=== PATIENT | female | born 1950 | race Caucasian/White ===

== ENCOUNTER 2018-09-06 14:04 | Inpatient (IN) | payer MEDICARE ==
[~2018-09-06] VITALS: Ht 162.6 cm; Wt 89.8 kg
[2018-09-06] MEDS ORDERED: IPRATRPIUM/ALBUTEROL 0.5/2.5MG 3 ML NEBU. NEB ONE (14:15)
--- NOTE | 2018-09-06 14:20 | PHYS DOC ---
Past History Past Medical History: CHF, COPD, Diabetes, High Cholesterol, Heart Disease, Hypertension Past Surgical History: Cholecystectomy, Coronary Bypass Surgery Alcohol Use: None Drug Use: None Adult General Chief Complaint Chief Complaint: SHORTNESS OF BREATH HPI HPI 68-year-old female presents with severe shortness of breath. The patient tells me that she has had increasing shortness of breath for the last 3 days. She has a history of CHF, COPD, [place], cardiac bypass. She is visiting from [place]. She has not noticed any increased swelling, just shortness of breath. She has not had fever or chills. She denies chest pain or diaphoresis. On arrival her oxygen was in the 70s on room air. She is on COPD medications and has been taking them as prescribed. Review of Systems Review of Systems Constitutional: Denies fever or chills [] Eyes: Denies change in visual acuity, redness, or eye pain [] HENT: Denies nasal congestion or sore throat [] Respiratory: Shortness of breath [] Cardiovascular: No additional information not addressed in HPI [] GI: Denies abdominal pain, nausea, vomiting, bloody stools or diarrhea [] : Denies dysuria or hematuria [] Musculoskeletal: Denies back pain or joint pain [] Integument: Denies rash or skin lesions [] Neurologic: Denies headache, focal weakness or sensory changes [] Endocrine: Denies polyuria or polydipsia [] All other systems were reviewed and found to be within normal limits, except as documented in this note. Current Medications Current Medications Current Medications Medications (Trade) Dose Ordered Sig/Smitha Start Time Stop Time Status Last Admin Dose Admin Albuterol/ Ipratropium (Duoneb) 3 ml 1X ONCE 09/06/18 14:15 09/06/18 14:16 UNV Allergies Allergies Allergies Coded Allergies Type Severity Reaction Last Updated Verified No Known Drug Allergies 09/06/18 No Physical Exam Physical Exam Constitutional: Well developed, well nourished, mild acute distress, non-toxic appearance. [] HENT: Normocephalic, atraumatic, bilateral external ears normal, oropharynx moist, no oral exudates, nose normal. [] Eyes: PERRLA, EOMI, conjunctiva normal, no discharge. [] Neck: Normal range of motion, no tenderness, supple, no stridor. [] Cardiovascular:Heart rate regular rhythm, no murmur [] Lungs & Thorax: Bilateral breath sounds markedly diminished throughout.[] Abdomen: Bowel sounds normal, soft, no tenderness, no masses, no pulsatile masses. [] Skin: Warm, dry, no erythema, no rash. [] Back: No tenderness, no CVA tenderness. [] Extremities: No tenderness, no cyanosis, no clubbing, ROM intact, 2+ edema bilateral lower extremities. [] Neurologic: Alert and oriented X 3, normal motor function, normal sensory function, no focal deficits noted. [] Psychologic: Affect normal, judgement normal, mood concerned. [] Current Patient Data Vital Signs Vital Signs Date Time Temp Pulse Resp B/P (MAP) Pulse Ox O2 Delivery O2 Flow Rate FiO2 09/06/18 14:08 98.6 88 24 77 Room Air EKG EKG Sinus rhythm, rate 90, normal axis, no ST elevations or depressions.[] Radiology/Procedures Radiology/Procedures [] Impressions: CHEST AP ONLY Clinical Indication: SHORT OF BREATH Comparison: 01/04/2013 two-view chest x-ray exam Findings: Sternal wires and mediastinal clips are present. The cardiomediastinal silhouette is normal. Lungs are clear. There is no pneumothorax. No pleural effusion is appreciated. No acute bone abnormality. IMPRESSION: No acute cardiopulmonary process. Electronically signed by: Maida Mccurdy MD (09/06/2018 2:42 PM) [id number] DICTATED AND SIGNED BY: MAIDA MCCURDY MD DATE: 09/06/18 1442 CC: TOMMY VILLA DO Course & Med Decision Making Course & Med Decision Making Pertinent Labs and Imaging studies reviewed. (See chart for details) The patient's chest x-ray is negative for acute findings. Her labs are remarkable for a pro BNP of over 700 and a slightly elevated creatinine 1.3. These are likely near her baseline. She was given a one hour albuterol treatment and now she has diffuse bilateral wheezing in her lungs. She has not previously been on oxygen and now is taking over 6 L to maintain oxygen saturation greater than 90. It has improved from 10 L at arrival. Patient was given 125 of Solu-Medrol. I discussed the patient with Dr. Esparza and he has accepted the patient for admission. Patient is in agreement with this plan. [] Dragon Disclaimer Dragon Disclaimer This electronic medical record was generated, in whole or in part, using a voice recognition dictation system. Departure Departure: Impression: Primary Impression: COPD exacerbation Disposition: ADMITTED INPATIENT Condition: GUARDED TOMMY VILLA DO Sep 06, 2018 14:20
[2018-09-06] MEDS ORDERED: ALBUTEROL SULFATE 2.5 MG/3 ML NEBU. ONE (14:34)
[2018-09-06 14:45] LABS: BASO % 0 % (0-3); EOS % 1 % (0-3); HEMATOCRIT 37.7 % (36.0-47.0); HEMOGLOBIN 12.3 g/dL (12.0-15.5); LYMPH # 1.3 x10^3/uL (1.0-4.8); LYMPH % 16 % (24-48); MEAN CORPUSCULAR HEMOGLOBIN 26 pg (25-35); MEAN CORPUSCULAR HGB CONC 33 g/dL (31-37); MEAN CORPUSCULAR VOLUME 80 fL (79-100); MONO # 0.8 x10^3/uL (0.0-1.1); MONO % 10 % (0-9); NEUT # 5.9 x10^3uL (1.8-7.7); NEUT % 74 % (31-73); PLATELET COUNT 273 x10^3/uL (140-400); RED BLOOD COUNT 4.74 x10^6/uL (3.50-5.40); RED CELL DISTRIBUTION WIDTH 16.3 % (11.5-14.5); WHITE BLOOD COUNT 7.9 x10^3/uL (4.0-11.0)
[2018-09-06] MEDS ORDERED: ALBUTEROL SULFATE 2.5 MG/3 ML NEBU. CONT NEB ONE (14:45)
--- NOTE | 2018-09-06 14:45 | RAD ---
CHEST AP ONLY Clinical Indication: SHORT OF BREATH Comparison: 01/04/2013 two-view chest x-ray exam Findings: Sternal wires and mediastinal clips are present. The cardiomediastinal silhouette is normal. Lungs are clear. There is no pneumothorax. No pleural effusion is appreciated. No acute bone abnormality. IMPRESSION: No acute cardiopulmonary process. Electronically signed by: Joshua Delgado MD (09/06/2018 2:42 PM) [id number]
[2018-09-06] MEDS ORDERED: methylPREDNISolone SOD SUCC PF 125 MG/2 ML VIAL. ONE (14:51)
[2018-09-06] MEDS ORDERED: methylPREDNISolone SOD SUCC PF 125 MG/2 ML VIAL. IV ONE (15:00)
[2018-09-06 15:06] LABS: ALBUMIN/GLOBULIN RATIO 0.7 (1.0-1.7); CALCIUM 8.1 mg/dL (8.5-10.1); CREATININE 1.3 mg/dL (0.6-1.0); POTASSIUM 4.3 mmol/L (3.5-5.1); TOTAL BILIRUBIN 0.5 mg/dL (0.2-1.0); TOTAL PROTEIN 7.6 g/dL (6.4-8.2)
[2018-09-06] MEDS ORDERED: IPRATRPIUM/ALBUTEROL 0.5/2.5MG 3 ML NEBU. NEB SCH (16:00)
[2018-09-06 16:30] VITALS: BP 123/86
[2018-09-06 17:07] LABS: BGAS PH 7.38 (7.35-7.45)
[2018-09-06] MEDS ORDERED: ALBUTEROL SULFATE 2.5 MG/3 ML NEBU. NEB PRN (17:30)
--- NOTE | 2018-09-06 17:30 | EKG ---
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
[2018-09-06] MEDS ORDERED: PRAV40TA2 PO (17:39)
[2018-09-06] MEDS ORDERED: INSU100I17 SQ (17:39)
[2018-09-06] MEDS ORDERED: FURO-69 PO (17:39)
[2018-09-06] MEDS ORDERED: FENO145T30 PO (17:39)
[2018-09-06] MEDS ORDERED: BUSP10TA PO (17:39)
[2018-09-06] MEDS ORDERED: METO25TA4 PO (17:39)
[2018-09-06] MEDS ORDERED: GABA-586 PO (17:39)
[2018-09-06] MEDS ORDERED: ASPI325T8 PO (17:39)
[2018-09-06] MEDS ORDERED: LOSA50TA86 PO (17:39)
--- NOTE | 2018-09-06 18:08 | HP ---
ADMIT DATE: 09/06/2018 HISTORY OF PRESENT ILLNESS: The patient is a 68-year-old female patient, visiting from [place], who came to the Emergency Room complaining of severe shortness of breath that has been worsening over the last 3 days. She complained of cough with yellow sputum; however, she also complained of orthopnea and paroxysmal nocturnal dyspnea, but denied any fever or chills, denied any chest pain or diaphoresis. However, when she arrived to the Emergency Room, her oxygen saturation was only 70% on room air. She is on bronchodilators and she has been taking her medication regularly. She was extensively evaluated in the Emergency Room and was given back to back treatment. Her lab work showed her white cell count was normal and her chest x-ray showed that there sternal wires and mediastinal clips are present. The cardiomediastinal silhouette is normal. Lungs are clear. There is no pneumothorax, no pleural effusion is appreciated. No acute bone abnormality. The patient was admitted with diagnoses of chronic obstructive pulmonary disease exacerbation, acute bronchitis and acute hypoxic respiratory failure. PAST MEDICAL HISTORY: Her past medical history is significant for chronic obstructive pulmonary disease, hypertension, hyperlipidemia, type 2 diabetes, coronary artery disease, status post CABG in 1997. She is also complaining of dysphagia, has congestive heart failure and aortic regurgitation. PAST SURGICAL HISTORY: Past surgical history is significant for right eye cataract extraction, coronary artery bypass graft surgery, right carotid endarterectomy, cholecystectomy. ALLERGIES: She has no known drug allergies. MEDICATIONS: She is currently on following medications: She is on albuterol sulfate/ipratropium bromide 0.5/3 mg in 3 mL by nebulizer 4 times a day, aspirin 325 mg once a day, buspirone 10 mg 3 times a day, fenofibrate 140 mg once a day, Advair Diskus 500/50 ____ times a day, furosemide 20 mg twice a day, gabapentin 300 mg at bedtime. She is on losartan 50 mg twice a day, metoprolol tartrate 25 mg, she takes half a tablet twice a day, pravastatin 40 mg at bedtime, Symbicort 2 times a day. She is on insulin 10 units before meals. She is on Lantus insulin 50 units twice a day. FAMILY HISTORY: She has one brother and 5 sisters, all older and all of them have diabetes and coronary artery disease and her father at the age of 52 because of myocardial infarction. Mother at the age of 61 because of myocardial infarction. SOCIAL HISTORY: She is , lives alone. She has 3 daughters and 1 son. She is an ex-smoker, quit 20 years ago. She used to smoke a pack a day for 30-40 years. She does not drink alcohol or recreational drugs. 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 REVIEW OF SYSTEMS: The patient denied any blurring of vision. She does have cataract extraction in her right eye, but denied any glaucoma or macular degeneration. Denied any earache, tinnitus or sensorineural deafness. Denied any nosebleeds, stuffy nose or postnasal drip. Denied any sore throat, sore tongue, toothache, hoarseness of voice. She did complain of difficulty swallowing. Denied any nausea, vomiting, diarrhea or constipation. Denied any hematemesis, melena or hematochezia. Denied any dysuria, frequency or hematuria. Denied any chest pain, but did complain of shortness of breath, orthopnea and paroxysmal nocturnal dyspnea. Did complain of cough with scanty yellowish sputum. Denied any dizziness, lightheadedness or vertigo. Denied any chills, rigors, or fever. She did have history of obstructive sleep apnea and she was actually started on BiPAP, but she could not tolerate it. PHYSICAL EXAMINATION: GENERAL: On arrival to the Emergency Room, the patient was clearly tachypneic, hypoxic. Her oxygen saturation was only 77% on room air. Pale, no jaundice, cyanosis, or thyromegaly. No jugular venous distension. Mild bilateral lower limb edema. VITAL SIGNS: Her heart rate was 88, blood pressure was 123/47, temperature was 98.6, respiratory rate was 24, and oxygen saturation was 77% on room air that increased to 93% on 9 liters of oxygen. HEENT: Examination of the head, eyes, ears, nose and throat showed normocephalic, atraumatic. NECK: Supple. HEART: Showed normal first and second heart sounds with no gallop, rub or murmur. CHEST: Showed central trachea, equally reduced expansion, reduced air entry, vesicular sounds with bilateral scattered rhonchi. I could not appreciate any crepitation. NEUROLOGIC: She is awake, alert, responding appropriately. All her cranial nerves are intact. EXTREMITIES: She moves extremities without difficulty. She does ambulate without assistance or assistive devices and she is not normally on oxygen at home. LABORATORY DATA AND IMAGING STUDIES: Her lab work on arrival showed a white cell count of 7900, hemoglobin 12.3, hematocrit 37.7, MCV 80 and platelet count 273,000. Her chemistry showed a serum sodium 137, potassium 4.3, chloride 102, bicarbonate 29, anion gap of 6, BUN 32, creatinine 1.3, estimated GFR was 41 mL per minute. Her glucose was 209, calcium was 8.1. Total bilirubin, AST, ALT, alkaline phosphatase were normal. Her first set of cardiac enzymes showed troponin to be less than 0.017 and beta-natriuretic peptide was 754. Total protein was 7.6, albumin 3. Her chest x-ray showed sternal wires and mediastinal clips are present. The cardiomediastinal silhouette is normal. Lungs are clear. There is no pneumothorax, no pleural effusion is appreciated. No acute bony abnormalities. IMPRESSION: So, in summary, this is a 68-year-old female patient, who was admitted with acute hypoxic respiratory failure, chronic obstructive pulmonary disease exacerbation, acute bronchitis. She has multiple other medical problems including obviously chronic obstructive pulmonary disease exacerbation, hypertension, type 2 diabetes, hyperlipidemia and she is known to have chronic, probably diastolic congestive heart failure due to aortic regurgitation. PLAN: My plan is to continue with IV antibiotic, IV steroids and inhalers. We will obviously consult the cardiology to assist with her management and will do 2 more sets of cardiac enzyme. CONSUELO ACEVEDO MD DR: TONG/charles JOB#: [id number] / [id number]
[2018-09-06 19:12] VITALS: BP_SYST 117; BP_DIAS 45; BP_DIAS 48
[2018-09-06] MEDS: INSULIN LISPRO 300 UNITS/3 ML INSULN.PEN. SQ SCH (19:12)
[2018-09-06] MEDS: FUROSEMIDE 20 MG TABLET PO SCH (19:13)
[2018-09-06] MEDS: IPRATRPIUM/ALBUTEROL 0.5/2.5MG 3 ML NEBU. NEB SCH (20:33)
[2018-09-06 21:16] VITALS: BP 121/45
[2018-09-06] MEDS: GABAPENTIN 300 MG CAPSULE. PO SCH (21:17)
[2018-09-06] MEDS: methylPREDNISolone SOD SUCC PF 40 MG/ML VIAL. IV SCH (21:17)
[2018-09-06] MEDS: PRAVASTATIN 20 MG TABLET. PO SCH (21:18)
[2018-09-06] MEDS: LOSARTAN 50 MG TABLET. PO SCH (21:18)
[2018-09-06] MEDS: METOPROLOL TART IMMED RELEASE 25 MG TABLET PO SCH (21:18)
[2018-09-06] MEDS: busPIRone 5 MG TABLET. PO SCH (21:19)
[2018-09-06] MEDS: ASPIRIN 325 MG TABLET PO SCH (21:19)
[2018-09-06] MEDS: MONTELUKAST 10 MG TABLET. PO SCH (21:19)
[2018-09-06] MEDS: INSULIN GLARGINE 300 UNITS/3 ML INSULN.PEN. SQ SCH (21:32)
[2018-09-06 23:02] VITALS: BP 106/49
[2018-09-07 04:22] VITALS: BP 135/56
[2018-09-07] MEDS: IPRATRPIUM/ALBUTEROL 0.5/2.5MG 3 ML NEBU. NEB SCH ×4 (05:01→20:06)
[2018-09-07] MEDS: methylPREDNISolone SOD SUCC PF 40 MG/ML VIAL. IV SCH ×3 (05:23→21:06)
[2018-09-07 06:15] LABS: BASO % 0 % (0-3); EOS % 0 % (0-3); HEMATOCRIT 37.1 % (36.0-47.0); HEMOGLOBIN 11.8 g/dL (12.0-15.5); LYMPH # 0.7 x10^3/uL (1.0-4.8); LYMPH % 10 % (24-48); MEAN CORPUSCULAR HEMOGLOBIN 26 pg (25-35); MEAN CORPUSCULAR HGB CONC 32 g/dL (31-37); MEAN CORPUSCULAR VOLUME 81 fL (79-100); MONO # 0.3 x10^3/uL (0.0-1.1); MONO % 3 % (0-9); NEUT # 6.6 x10^3uL (1.8-7.7); NEUT % 87 % (31-73); PLATELET COUNT 275 x10^3/uL (140-400); RED BLOOD COUNT 4.57 x10^6/uL (3.50-5.40); RED CELL DISTRIBUTION WIDTH 16.2 % (11.5-14.5); WHITE BLOOD COUNT 7.5 x10^3/uL (4.0-11.0)
[2018-09-07 06:29] LABS: ALBUMIN 2.8 g/dL (3.4-5.0); ALBUMIN/GLOBULIN RATIO 0.6 (1.0-1.7); CALCIUM 7.9 mg/dL (8.5-10.1); CREATININE 1.4 mg/dL (0.6-1.0); GFR 37.6; POTASSIUM 4.9 mmol/L (3.5-5.1); TOTAL BILIRUBIN 0.5 mg/dL (0.2-1.0); TOTAL PROTEIN 7.3 g/dL (6.4-8.2)
[2018-09-07] MEDS: INSULIN LISPRO 300 UNITS/3 ML INSULN.PEN. SQ SCH ×3 (07:56→16:51)
[2018-09-07] MEDS: INSULIN GLARGINE 300 UNITS/3 ML INSULN.PEN. SQ SCH ×2 (07:57→21:06)
[2018-09-07] MEDS: FUROSEMIDE 20 MG TABLET PO SCH ×3 (08:20→16:47)
[2018-09-07] MEDS: busPIRone 5 MG TABLET. PO SCH ×3 (08:20→21:05)
[2018-09-07] MEDS: FENOFIBRATE NANOCRYSTALLIZED 145 MG TABLET PO SCH (08:20)
[2018-09-07] MEDS: METOPROLOL TART IMMED RELEASE 25 MG TABLET PO SCH ×2 (08:20→21:05)
[2018-09-07] MEDS: LOSARTAN 50 MG TABLET. PO SCH ×2 (08:20→21:05)
[2018-09-07 10:52] VITALS: BP 117/52
[2018-09-07 14:33] VITALS: BP 103/61
--- NOTE | 2018-09-07 19:30 | PDOC2 ---
CONSULT Date of Admission DATE: 09/07/18 TIME: 19:06 Reason for Consult: CHF, aortic regurgitation Problem List Problems Medical Problems: (1) COPD exacerbation Status: Acute History of Present Illness Ms oGdwin is a 68 year old female from [place] here visiting children. She has a history of coronary artery disease s/p bypass surgery in the late 90s. She has additional history of hypertension, hyperlipidemia, diabetes mellitus and COPD. She reports that over the last couple weeks she has become progressively short of breath, she reports symptoms started with a productive cough and runny nose. She reports multiple exposures to respiratory illness. She says over the last couple days the dyspnea increased to the point she sought emergency care. She says she received a couple b ack to back breathing treatments and began to feel better. She denies chest pain. She does report that her only anginal symptom prior to bypass was progressive fatigue. She denies any recent similar symptoms. SHe denies congestive symptoms. She does report edema which is worse when she is on her feel alot, in the evenings and better in the mornings. She denies any palpitations, lightheadedness or syncope. Cardiovascular: CAD, HTN, hyperipidemia, valve insufficiency, Other (aortic dilitation, she reports 3cm. She reports last cardiac cath a couple years ago and no interventions needed. She reports long standing aortic regurgitation, ) Pulmonary: COPD, Pneumonia, Other ([place]) GI: Other (dysphagia) Endocrine: Diabetes Past Surgical History: Cholecystectomy, CABG, Cataract Removal, Other (carotid endarterectomy) Family History multiple family members with coronary artery disease Social History occasional smoker, no ETOH, no illicit drugs Current Medications Current Medications Albuterol/ Ipratropium (Duoneb) 3 ml 1X ONCE NEB Last administered on at 14:17; Start 09/06/18 at 14:15; Stop 09/06/18 at 14:18; Status DC Albuterol Sulfate (Ventolin) 2.5 mg STK-MED ONCE .ROUTE ; Start 09/06/18 at 14: 34; Stop 09/06/18 at 14:42; Status DC Albuterol Sulfate (Ventolin) 10 mg 1X ONCE CONT NEB Last administered on at 14:46; Start 09/06/18 at 14:45; Stop 09/06/18 at 14:46; Status DC Methylprednisolone Sodium Succinate (SOLU-Medrol 125MG VIAL) 125 mg 1X ONCE IV Last administered on 09/06/18 14:52; Start 09/06/18 at 15:00; Stop 09/06/18 at 15:01; Status DC Methylprednisolone Sodium Succinate (SOLU-Medrol 125MG VIAL) 125 mg STK-MED ONCE .ROUTE ; Start 09/06/18 at 14:51; Stop 09/06/18 at 14:52; Status DC Albuterol/ Ipratropium (Duoneb) 3 ml RTQID NEB ; Start 09/06/18 at 16:00; Stop 09/06/18 at 17:31; Status DC Methylprednisolone Sodium Succinate (SOLU-Medrol 40MG VIAL) 40 mg Q8HRS IV Last administered on 09/07/18at 13:47; Start 09/06/18 at 22:00 Albuterol/ Ipratropium (Duoneb) 3 ml RTQID NEB Last administered on 09/07/18at 15:36; Start 09/06/18 at 20:00 Albuterol Sulfate (Ventolin) 2.5 mg PRN Q2HR PRN NEB SHORTNESS OF BREATH Last administered on 09/07/18at 14:35; Start 09/06/18 at 17:30 Guaifenesin (Mucinex Er) 600 mg BID PO Last administered on 09/07/18 08:20; Start 09/06/18 at 21:00 Montelukast Sodium (Singulair) 10 mg QHS PO Last administered on 09/06/18at 21: 19; Start 09/06/18 at 21:00 Aspirin (Mohinder Aspirin) 325 mg QHS PO Last administered on 09/06/18 21:19; Start 09/06/18 at 21:00 Furosemide (Lasix) 20 mg BID94 PO Last administered on 09/07/18 08:20; Start 09/06/18 at 18:00; Stop 09/07/18 at 16:55; Status DC Gabapentin (Neurontin) 300 mg QHS PO Last administered on 09/06/18 21:17; Start 09/06/18 at 21:00 Losartan Potassium (Cozaar) 50 mg BID PO Last administered on 09/07/18 08:20; Start 09/06/18 at 21:00 Metoprolol Tartrate (Lopressor) 25 mg BID PO Last administered on 09/07/18 08: 20; Start 09/06/18 at 21:00 Buspirone HCl (Buspar) 10 mg TID PO Last administered on 09/07/18at 13:47; Start 09/06/18 at 21:00 Fenofibrate (Tricor) 145 mg DAILY PO Last administered on 09/07/18at 08:20; Start 09/07/18 at 09:00 Insulin Human Lispro (HumaLOG) 10 units TIDAC SQ Last administered on at 16:51; Start 09/06/18 at 19:30 Pravastatin Sodium (Pravachol) 40 mg QHS PO Last administered on 09/06/18at 21: 18; Start 09/06/18 at 21:00 Insulin Glargine (Lantus) 50 units BID SQ Last administered on 09/07/18at 07:57 ; Start 09/06/18 at 19:30 Furosemide (Lasix) 20 mg DAILY PO ; Start 09/08/18 at 09:00 Active Scripts Active Reported Gabapentin (Gabapentin) 300 Mg Capsule 300 Mg PO QHS Lasix (Furosemide) 20 Mg Tablet 20 Mg PO BID Fenofibrate (Fenofibrate Nanocrystallized) 145 Mg Tablet 145 Mg PO DAILY Buspirone Hcl 10 Mg Tablet 10 Mg PO TID Aspirin 325 Mg Tablet 325 Mg PO QHS Novolog Flexpen (Insulin Aspart) 100 Unit/1 Ml Insuln.pen 10 Unit SQ TIDAC Pravastatin Sodium 40 Mg Tablet 40 Mg PO QHS Metoprolol Tartrate 25 Mg Tablet 25 Mg PO BID Cozaar (Losartan Potassium) 50 Mg Tablet 50 Mg PO BID Allergies: Coded Allergies: No Known Drug Allergies (Unverified , 09/06/18) Review of System as per HPI General: Alert, Oriented X3, Cooperative, No acute distress HEENT: Atraumatic, EOMI, Mucous membr. moist/pink Lungs: Other (expiratory wheezing and rhonchi, clears with cough) Heart: Normal S1, Normal S2, Other (no obvious murmurs, no gallops, clicks or rubs) Abdomen: Normal bowel sounds, Soft, No tenderness Extremities: No cyanosis, Other (1+ edema) Neuro: Normal speech, Strength at 5/5 X4 ext Psych/Mental Status: Mental status NL, Mood NL VITALS Vital Signs Date Time Temp Pulse Resp B/P (MAP) Pulse Ox O2 Delivery O2 Flow Rate FiO2 09/07/18 15:36 91 Nasal Cannula 4.0 09/07/18 14:33 97.9 74 103/61 (75) 09/07/18 05:48 27 Labs Laboratory Tests Test 09/06/18 14:30 09/06/18 15:54 09/06/18 16:30 09/06/18 17:40 White Blood Count 7.9 x10^3/uL (4.0-11.0) Red Blood Count 4.74 x10^6/uL (3.50-5.40) Hemoglobin 12.3 g/dL (12.0-15.5) Hematocrit 37.7 % (36.0-47.0) Mean Corpuscular Volume 80 fL (79-100) Mean Corpuscular Hemoglobin 26 pg (25-35) Mean Corpuscular Hemoglobin Concent 33 g/dL (31-37) Red Cell Distribution Width 16.3 % (11.5-14.5) Platelet Count 273 x10^3/uL (140-400) Neutrophils (%) (Auto) 74 % (31-73) Lymphocytes (%) (Auto) 16 % (24-48) Monocytes (%) (Auto) 10 % (0-9) Eosinophils (%) (Auto) 1 % (0-3) Basophils (%) (Auto) 0 % (0-3) Neutrophils # (Auto) 5.9 x10^3uL (1.8-7.7) Lymphocytes # (Auto) 1.3 x10^3/uL (1.0-4.8) Monocytes # (Auto) 0.8 x10^3/uL (0.0-1.1) Eosinophils # (Auto) 0.0 x10^3/uL (0.0-0.7) Basophils # (Auto) 0.0 x10^3/uL (0.0-0.2) Sodium Level 137 mmol/L (136-145) Potassium Level 4.3 mmol/L (3.5-5.1) Chloride Level 102 mmol/L (98-107) Carbon Dioxide Level 29 mmol/L (21-32) Anion Gap 6 (6-14) Blood Urea Nitrogen 32 mg/dL (7-20) Creatinine 1.3 mg/dL (0.6-1.0) Estimated GFR (Cockcroft-Gault) 41.0 BUN/Creatinine Ratio 25 (6-20) Glucose Level 209 mg/dL (70-99) Calcium Level 8.1 mg/dL (8.5-10.1) Total Bilirubin 0.5 mg/dL (0.2-1.0) Aspartate Amino Transf (AST/SGOT) 25 U/L (15-37) Alanine Aminotransferase (ALT/SGPT) 23 U/L (14-59) Alkaline Phosphatase 58 U/L (46-116) Troponin I Quantitative < 0.017 ng/mL (0-0.055) < 0.017 ng/mL (0-0.055) IE-Ven-K-Type Natriuretic Peptide 754 pg/mL (0-124) Total Protein 7.6 g/dL (6.4-8.2) Albumin 3.0 g/dL (3.4-5.0) Albumin/Globulin Ratio 0.7 (1.0-1.7) Blood Gas pH 7.38 (7.35-7.45) Blood Gas PCO2 45 mmHg (35-45) Blood Gas PO2 59 mmHg (80-100) Blood Gas HCO3 27 mmol/L (22-26) Arterial Bld O2 Saturation (Calc) 89 % (92-99) FiO2 35 % Nasal Screen MRSA (PCR) Negative (Negative) Test 09/06/18 18:57 09/06/18 21:11 09/07/18 05:48 09/07/18 07:33 Glucose (Fingerstick) 236 mg/dL (70-99) 308 mg/dL (70-99) 294 mg/dL (70-99) White Blood Count 7.5 x10^3/uL (4.0-11.0) Red Blood Count 4.57 x10^6/uL (3.50-5.40) Hemoglobin 11.8 g/dL (12.0-15.5) Hematocrit 37.1 % (36.0-47.0) Mean Corpuscular Volume 81 fL (79-100) Mean Corpuscular Hemoglobin 26 pg (25-35) Mean Corpuscular Hemoglobin Concent 32 g/dL (31-37) Red Cell Distribution Width 16.2 % (11.5-14.5) Platelet Count 275 x10^3/uL (140-400) Neutrophils (%) (Auto) 87 % (31-73) Lymphocytes (%) (Auto) 10 % (24-48) Monocytes (%) (Auto) 3 % (0-9) Eosinophils (%) (Auto) 0 % (0-3) Basophils (%) (Auto) 0 % (0-3) Neutrophils # (Auto) 6.6 x10^3uL (1.8-7.7) Lymphocytes # (Auto) 0.7 x10^3/uL (1.0-4.8) Monocytes # (Auto) 0.3 x10^3/uL (0.0-1.1) Eosinophils # (Auto) 0.0 x10^3/uL (0.0-0.7) Basophils # (Auto) 0.0 x10^3/uL (0.0-0.2) Sodium Level 137 mmol/L (136-145) Potassium Level 4.9 mmol/L (3.5-5.1) Chloride Level 101 mmol/L (98-107) Carbon Dioxide Level 28 mmol/L (21-32) Anion Gap 8 (6-14) Blood Urea Nitrogen 36 mg/dL (7-20) Creatinine 1.4 mg/dL (0.6-1.0) Estimated GFR (Cockcroft-Gault) 37.6 BUN/Creatinine Ratio 26 (6-20) Glucose Level 310 mg/dL (70-99) Calcium Level 7.9 mg/dL (8.5-10.1) Magnesium Level 2.8 mg/dL (1.8-2.4) Total Bilirubin 0.5 mg/dL (0.2-1.0) Aspartate Amino Transf (AST/SGOT) 21 U/L (15-37) Alanine Aminotransferase (ALT/SGPT) 23 U/L (14-59) Alkaline Phosphatase 55 U/L (46-116) Troponin I Quantitative < 0.017 ng/mL (0-0.055) Total Protein 7.3 g/dL (6.4-8.2) Albumin 2.8 g/dL (3.4-5.0) Albumin/Globulin Ratio 0.6 (1.0-1.7) Triglycerides Level 82 mg/dL (0-150) Cholesterol Level 117 mg/dL (0-200) LDL Cholesterol, Calculated 54 mg/dL (0-100) VLDL Cholesterol, Calculated 16 mg/dL (0-40) Non-HDL Cholesterol Calculated 70 mg/dL (0-129) HDL Cholesterol 47 mg/dL (40-60) Cholesterol/HDL Ratio 2.0 Test 09/07/18 11:33 09/07/18 16:45 Glucose (Fingerstick) 276 mg/dL (70-99) 267 mg/dL (70-99) Images CXR - no acute disease EKG - sinus rhythm with no acute ischemic changes Assessment/Plan 1. acute on chronic respiratory failure secondary to COPD exacerbation - mgmt per PCP. possible component of diastolic heart failure but currently does not appear to be in overt heart failure. 2. CAD sp CABG - she remains angina free. Continue medical therapy with aspirin, statin and beta edgar. Check echo. outpatient follow up. 3. history of AI and presumed aortic root dilitation. - check echo and request piror records. 4. hypertension - controlled, continue medical mgmt 5. hyperlipidemia - continue statin, check lipids 6. diabetes mellitus - per PCP 7. renal insufficiency likely acute on chronic - will decrease lasix to daily Check echo, continue medical therapy. She is looking to establish with a cardiology practice locally. Suggest outpatient follow up in 2-3 weeks after discharge. Contact information provided. HUNG GUARDADO APRN Sep 07, 2018 19:29
[2018-09-07 19:50] VITALS: BP 115/57
--- NOTE | 2018-09-07 20:01 | PN ---
DATE: 09/07/2018 SUBJECTIVE: The patient is sitting on the edge of the bed comfortably and eating her lunch, in no apparent distress. She is feeling generally much better; however, she continued to have chest tightness and wheezing. Her cough is slightly better today. PHYSICAL EXAMINATION: GENERAL: When I examined her, she looked well, slightly pale, but no jaundice, cyanosis, or thyromegaly. No jugular venous distension. No lower limb edema. VITAL SIGNS: Her heart rate was 63, blood pressure was 117/52, temperature was 98.6, respiratory rate was 27 and oxygen saturation was 92% on 4 liters of oxygen by nasal cannula. HEENT: Examination of the head, eyes, ears, nose and throat showed normocephalic, atraumatic. NECK: Supple. HEART: Showed normal first and second heart sounds. No gallop, rub or murmur. CHEST: Shows central trachea, equally reduced expansion, reduced air entry, vesicular sounds with bilateral scattered rhonchi. I could not appreciate any crepitation. ABDOMEN: Distended, soft, nontender. NEUROLOGIC: She was awake, alert, responding appropriately. All her cranial nerves are intact. EXTREMITIES: She moves extremities without difficulty. Her intake over the last 24 hours was 360, output was 675. LABORATORY DATA: Her lab work showed a white cell count 7500, hemoglobin 11.8, hematocrit 37, MCV 81 and platelet count of 175,000. Her chemistry showed a serum sodium 137, potassium 4.9, chloride 101, bicarbonate 28, anion gap of 8, BUN 36, creatinine 1.4, estimated GFR was 37 mL per minute. Her glucose was 110, calcium was 7.9. Total bilirubin, AST, ALT, alkaline phosphatase were normal. Her magnesium was 2.8. He has 3 sets of cardiac enzymes that ruled out myocardial infarction. ASSESSMENT: 1. Acute hypoxic hypercapnic respiratory failure. 2. Chronic obstructive pulmonary disease. 3. Acute bronchitis/bronchopneumonia. 4. She has multiple other medical problems including: A. Hypertension. B. Type 2 diabetes mellitus. C. Hyperlipidemia. D. Chronic diastolic congestive heart failure. E. Aortic regurgitation. PLAN: Plan is to continue with IV antibiotic, IV steroids and inhaler. CONSUELO ACEVEDO MD DR: TONG/charles JOB#: [id number] / [id number]
[2018-09-07] MEDS: MONTELUKAST 10 MG TABLET. PO SCH (21:05)
[2018-09-07] MEDS: GABAPENTIN 300 MG CAPSULE. PO SCH (21:05)
[2018-09-07] MEDS: PRAVASTATIN 20 MG TABLET. PO SCH (21:05)
[2018-09-07] MEDS: ASPIRIN 325 MG TABLET PO SCH (21:05)
[2018-09-07] MEDS ORDERED: ALPRAZolam 0.25 MG TABLET PO PRN (21:15)
[2018-09-08 00:20] VITALS: BP 107/62
[2018-09-08] MEDS: methylPREDNISolone SOD SUCC PF 40 MG/ML VIAL. IV SCH (05:04)
[2018-09-08] MEDS: IPRATRPIUM/ALBUTEROL 0.5/2.5MG 3 ML NEBU. NEB SCH ×4 (05:08→19:58)
[2018-09-08 06:02] VITALS: BP 108/59
[2018-09-08 07:51] LABS: BASO % 0 % (0-3); EOS % 0 % (0-3); HEMATOCRIT 35.6 % (36.0-47.0); HEMOGLOBIN 11.2 g/dL (12.0-15.5); LYMPH # 0.7 x10^3/uL (1.0-4.8); LYMPH % 5 % (24-48); MEAN CORPUSCULAR HEMOGLOBIN 25 pg (25-35); MEAN CORPUSCULAR HGB CONC 32 g/dL (31-37); MEAN CORPUSCULAR VOLUME 81 fL (79-100); MONO # 0.6 x10^3/uL (0.0-1.1); MONO % 4 % (0-9); NEUT % 91 % (31-73); PLATELET COUNT 308 x10^3/uL (140-400); RED BLOOD COUNT 4.42 x10^6/uL (3.50-5.40); RED CELL DISTRIBUTION WIDTH 16.3 % (11.5-14.5); WHITE BLOOD COUNT 14.3 x10^3/uL (4.0-11.0)
[2018-09-08] MEDS: busPIRone 5 MG TABLET. PO SCH ×3 (07:57→21:35)
[2018-09-08] MEDS: METOPROLOL TART IMMED RELEASE 25 MG TABLET PO SCH ×2 (07:57→21:35)
[2018-09-08] MEDS: LOSARTAN 50 MG TABLET. PO SCH (07:58)
[2018-09-08] MEDS: FENOFIBRATE NANOCRYSTALLIZED 145 MG TABLET PO SCH (07:58)
[2018-09-08] MEDS: FUROSEMIDE 20 MG TABLET PO SCH (07:58)
[2018-09-08] MEDS: INSULIN GLARGINE 300 UNITS/3 ML INSULN.PEN. SQ SCH ×2 (08:04→21:41)
[2018-09-08] MEDS: INSULIN LISPRO 300 UNITS/3 ML INSULN.PEN. SQ SCH ×3 (08:05→16:23)
[2018-09-08 08:06] LABS: ALBUMIN 2.8 g/dL (3.4-5.0); ALBUMIN/GLOBULIN RATIO 0.7 (1.0-1.7); CALCIUM 7.7 mg/dL (8.5-10.1); CREATININE 1.5 mg/dL (0.6-1.0); GFR 34.7; POTASSIUM 5.3 mmol/L (3.5-5.1); TOTAL BILIRUBIN 0.4 mg/dL (0.2-1.0); TOTAL PROTEIN 7.1 g/dL (6.4-8.2)
[2018-09-08 08:15] LABS: % BANDS 1 % (0-9); % LYMPHS 4 % (24-48); % MONOS 3 % (0-10); % SEGS 92 % (35-66)
[2018-09-08 08:16] LABS: PLT ESTIMATE ADEQUATE (ADEQUATE)
[2018-09-08 10:52] VITALS: BP 103/62
[2018-09-08 14:20] VITALS: BP 111/66
[2018-09-08] MEDS ORDERED: SODIUM POLYSTYRENE SULFONATE 15 GM/60 ML ORAL.SUSP. PO ONE (14:30)
[2018-09-08 19:15] VITALS: BP 104/55
--- NOTE | 2018-09-08 21:04 | PN ---
DATE: 09/08/2018 SUBJECTIVE: The patient is sitting on the edge of the bed comfortably in no apparent distress. She is awake, alert. Denied any complaints; however, her potassium is 5.3 and her white cell count has dramatically risen to 14,300. PHYSICAL EXAMINATION: GENERAL: When I examined her, she looked well and was clearly in no apparent respiratory distress, slightly pale, no jaundice, cyanosis, or thyromegaly. No jugular venous distension. No lower limb edema. VITAL SIGNS: Her heart rate was 65, blood pressure was 103/62, temperature was 97.5, respiratory rate 22 and oxygen saturation was 94% on 4 liters of oxygen by nasal cannula. HEAD, EYES, EARS, NOSE, AND THROAT: Showed normocephalic, atraumatic. NECK: Supple. HEART: Showed normal first and second heart sounds with no gallop, rub or murmur. CHEST: Shows central trachea, equally reduced expansion, reduced air entry, vesicular sounds, very few scattered rhonchi, much improved compared to the day of admission. I could not appreciate any crepitation. ABDOMEN: Distended, soft, nontender. NEUROLOGIC: She was awake, alert, responding appropriately. All cranial nerves intact. She moves extremities without difficulty. She ambulates without assistance or assistive devices. Her intake was 360, output was 675. LABORATORY DATA: Her lab work this morning showed a white cell count 14,300, hemoglobin 11, hematocrit 35, MCV 81, and platelet count of 108,000. Her chemistry showed a serum sodium 137, potassium 5.3, chloride 103, bicarbonate 30, anion gap of 4, BUN 46, creatinine 1.5. Her blood sugar was 263 mg/dL, calcium was 7.7. Total bilirubin, AST, ALT, alkaline phosphatase are normal. Total protein was 7.1, albumin was 2.8. ASSESSMENT: 1. Acute hypoxic hypercapnic respiratory failure, improving. 2. Chronic obstructive pulmonary disease exacerbation. 3. Acute bronchitis/bronchopneumonia. 4. The patient has multiple other medical problems including: A. Hypertension. B. Type 2 diabetes. C. Hyperlipidemia. D. Chronic diastolic congestive heart failure. E. Aortic regurgitation. PLAN: I will discontinue her losartan. I will cut down the Solu-Medrol, add doxycycline. If she remains stable tomorrow, she can be discharged home with home oxygen. CONSUELO ACEVEDO MD DR: Leora JOB#: [id number] / [id number]
[2018-09-08] MEDS: PRAVASTATIN 20 MG TABLET. PO SCH (21:34)
[2018-09-08] MEDS: GABAPENTIN 300 MG CAPSULE. PO SCH (21:35)
[2018-09-08] MEDS: MONTELUKAST 10 MG TABLET. PO SCH (21:35)
[2018-09-08] MEDS: ASPIRIN 325 MG TABLET PO SCH (21:35)
[2018-09-08 23:05] VITALS: BP 94/54
[2018-09-09] MEDS ORDERED: methylPREDNISolone SOD SUCC PF 40 MG/ML VIAL. IV SCH (02:00)
[2018-09-09] MEDS: IPRATRPIUM/ALBUTEROL 0.5/2.5MG 3 ML NEBU. NEB SCH ×2 (05:14→10:43)
[2018-09-09 05:30] VITALS: BP 98/62
[2018-09-09] MEDS: INSULIN LISPRO 300 UNITS/3 ML INSULN.PEN. SQ SCH (07:30)
[2018-09-09 07:48] LABS: HEMATOCRIT 35.8 % (36.0-47.0); HEMOGLOBIN 11.2 g/dL (12.0-15.5); RED BLOOD COUNT 4.43 x10^6/uL (3.50-5.40); RED CELL DISTRIBUTION WIDTH 16.4 % (11.5-14.5); WHITE BLOOD COUNT 12.6 x10^3/uL (4.0-11.0)
[2018-09-09 07:55] LABS: CALCIUM 7.6 mg/dL (8.5-10.1); CREATININE 1.6 mg/dL (0.6-1.0); GFR 32.2; POTASSIUM 5.1 mmol/L (3.5-5.1)
[2018-09-09] MEDS: busPIRone 5 MG TABLET. PO SCH (08:17)
[2018-09-09] MEDS: METOPROLOL TART IMMED RELEASE 25 MG TABLET PO SCH (08:18)
[2018-09-09] MEDS: FUROSEMIDE 20 MG TABLET PO SCH (08:18)
[2018-09-09] MEDS: FENOFIBRATE NANOCRYSTALLIZED 145 MG TABLET PO SCH (08:18)
[2018-09-09] MEDS: INSULIN GLARGINE 300 UNITS/3 ML INSULN.PEN. SQ SCH (08:20)
[2018-09-09 10:49] VITALS: BP 96/58
--- NOTE | 2018-09-09 14:30 | DS ---
DATE OF DISCHARGE: 09/09/2018 HOSPITAL COURSE: The patient is a 68-year-old female who was admitted on 09/06/2018 with increasing shortness of breath that has been worsening over the last 3 days, cough with yellow sputum. She also complained of orthopnea and paroxysmal nocturnal dyspnea. Denied any fever or chills. When she arrived to the Emergency Room, her oxygen saturation was only 70% on room air. She has been on bronchodilator. She has been taking them regularly without much improvement. She was extensively evaluated and she was treated with IV steroids, inhalers and did very well. Her white cell count came down has risen actually after starting the steroid and is coming down today from 14,000, then 12,000. Her chemistry showed that her potassium has risen from 4.3-5.3, and her creatinine has also risen and her blood pressure was somewhat in the lower side, so I discontinued her losartan altogether. PHYSICAL EXAMINATION: GENERAL: When I saw her today, she looked well and was clearly in no apparent respiratory distress, feeling generally much improved. No cough. No chest tightness. No wheezing, no shortness of breath. When I examined her, she looked pale, but no jaundice, cyanosis, or thyromegaly. No jugular venous distension. No lower limb edema. VITAL SIGNS: Her heart rate was 93, blood pressure was 96/58, temperature was 98.1, respiratory rate 24, and oxygen saturation was 95% on 2 liters of oxygen. HEAD, EYES, EARS, NOSE AND THROAT: Normocephalic, atraumatic. NECK: Supple. HEART: Showed normal first and second heart sounds with no gallop, rub or murmur. CHEST: Clear to auscultation. No crepitation or rhonchi. ABDOMEN: Distended, soft, nontender. No guarding or rigidity. No organomegaly. Hernial orifice intact. Bowel sounds normal. NEUROLOGIC: She was awake, alert, responding appropriately. Cranial nerves intact. She moves extremities without difficulty. She ambulates without assistance or assistive devices. Her intake over the last 24 hours was 1160, output was 200. LABORATORY DATA: As of this morning, her serum sodium was 142, potassium 5.1, chloride 105, bicarbonate 31, anion gap of 6, BUN 50, creatinine 1.6, estimated GFR was 32 mL per minute. Her glucose was 72, calcium was 7.6. Her white cell count was 12,600, hemoglobin 11, hematocrit 36, MCV 81 and platelet count 256,000. DISCHARGE MEDICATIONS: She was discharged home with home health to continue on aspirin 325 mg once a day, buspirone 10 mg 3 times a day, fenofibrate 145 mg once a day, gabapentin 300 mg at bedtime. She is on NovoLog insulin 10 units before meals, metoprolol tartrate 25 mg twice a day, pravastatin sodium 40 mg at bedtime. Continue with tapering course of steroids. She will be discharged also on DuoNeb 0.5-2.5 mg in 3 mL by nebulizer 4 times a day. I asked her to stop taking Lasix and losartan. She should come and repeat her lab work on Monday morning to check her basic metabolic profile to make sure that her kidney function and potassium are stable. She will be also discharged with home health and home oxygen. FINAL DISCHARGE DIAGNOSES: 1. Acute hypoxic hypercapnic respiratory failure, improved. 2. Chronic obstructive pulmonary disease exacerbation. 3. Acute bronchitis. 4. The patient has multiple other medical problems including: A. Hypertension. B. Type 2 diabetes. C. Hyperlipidemia. D. Chronic diastolic congestive heart failure. E. Aortic regurgitation. CONSUELO ACEVEDO MD DR: TONG/charles JOB#: [id number] / [id number]
== END 2018-09-09 12:00 | disposition home health service (06) | DRG 193 ==
LOC: ER 14:04 → ICU 15:43 → 1 SOUTH 09-07 12:59
PROVIDERS: ADMIT Internal Medicine; ATTEND Internal Medicine
DX: J18.0 Bronchopneumonia, unspecified organism (principal); J96.21 Acute and chronic respiratory failure with hypoxia; J96.22 Acute and chronic respiratory failure with hypercapnia; I50.32 Chronic diastolic (congestive) heart failure; J44.0 Chronic obstructive pulmonary disease with (acute) lower respiratory infection; J44.1 Chronic obstructive pulmonary disease with (acute) exacerbation; E11.9 Type 2 diabetes mellitus without complications; E78.00 Pure hypercholesterolemia, unspecified; E78.5 Hyperlipidemia, unspecified; F17.200 Nicotine dependence, unspecified, uncomplicated; G47.33 Obstructive sleep apnea (adult) (pediatric); I11.0 Hypertensive heart disease with heart failure; I25.10 Atherosclerotic heart disease of native coronary artery without angina pectoris; J20.9 Acute bronchitis, unspecified; R13.19 Other dysphagia; Z79.82 Long term (current) use of aspirin; Z82.49 Family history of ischemic heart disease and other diseases of the circulatory system; Z95.1 Presence of aortocoronary bypass graft; Z83.3 Family history of diabetes mellitus
CPT/HCPCS: 36415; 71045; 80048; 80053; 80061; 82803; 82947; 83735; 83880; 84484; 85007; 85025; 85027; 87641; 93005; 94640; 94644; 96374; J1815; J2920; J2930; J7613; J7620; 99285-25

== ENCOUNTER 2018-10-03 09:00 | Inpatient (IN) | payer MEDICARE, OTHER ==
[~2018-10-03] VITALS: Ht 157.5 cm; Wt 89.8 kg
[~2018-10-03 09:00] MED LIST: ASPI325T8 PO; BUSP10TA PO; FENO145T30 PO; FURO-69 PO; GABA-586 PO; INSU100I17 SQ; LOSA50TA86 PO; METO25TA4 PO; PRAV40TA2 PO
[2018-10-03] MEDS ORDERED: IPRATRPIUM/ALBUTEROL 0.5/2.5MG 3 ML NEBU. NEB ONE (09:30)
[2018-10-03 09:34] LABS: BASO % 1 % (0-3); EOS # 0.2 x10^3/uL (0.0-0.7); EOS % 3 % (0-3); HEMATOCRIT 33.9 % (36.0-47.0); HEMOGLOBIN 10.8 g/dL (12.0-15.5); LYMPH % 13 % (24-48); MEAN CORPUSCULAR HEMOGLOBIN 26 pg (25-35); MEAN CORPUSCULAR HGB CONC 32 g/dL (31-37); MEAN CORPUSCULAR VOLUME 82 fL (79-100); MONO # 0.5 x10^3/uL (0.0-1.1); MONO % 6 % (0-9); NEUT # 6.4 x10^3uL (1.8-7.7); NEUT % 78 % (31-73); PLATELET COUNT 342 x10^3/uL (140-400); RED BLOOD COUNT 4.12 x10^6/uL (3.50-5.40); RED CELL DISTRIBUTION WIDTH 16.5 % (11.5-14.5); WHITE BLOOD COUNT 8.2 x10^3/uL (4.0-11.0)
--- NOTE | 2018-10-03 09:46 | RAD ---
Chest, 2 views, 10/03/2018: HISTORY: Productive cough Comparison is made to a study from 09/06/2018. There is evidence of previous coronary artery surgery. The heart size and pulmonary vascularity are at the upper limits of normal. There are prominent epicardial fat pads. No pulmonary consolidation is seen. No significant pleural fluid is evident. Mild spurring is present in the spine. IMPRESSION: 1. Borderline vascular congestion. 2. No acute infiltrates. Electronically signed by: Rommel Rivas MD (10/03/2018 9:43 AM) [facility]
[2018-10-03 09:53] LABS: ALBUMIN 2.9 g/dL (3.4-5.0); ALBUMIN/GLOBULIN RATIO 0.7 (1.0-1.7); CALCIUM 8.7 mg/dL (8.5-10.1); CREATININE 1.1 mg/dL (0.6-1.0); GFR 49.7; POTASSIUM 4.1 mmol/L (3.5-5.1); TOTAL BILIRUBIN 0.6 mg/dL (0.2-1.0); TOTAL PROTEIN 7.2 g/dL (6.4-8.2)
--- NOTE | 2018-10-03 09:54 | PHYS DOC ---
Past History Past Medical History: COPD, Heart Disease, Other Past Surgical History: Colectomy, Other Alcohol Use: None Drug Use: None Adult General Chief Complaint Chief Complaint: SHORTNESS OF BREATH HPI HPI Patient is a 68-year-old female with a history of O2 dependent COPD with a recent hospital admission presents with progressive shortness of breath. Patient states over the last several days she has felt more and more short of breath. She has had some nonproductive cough. She denies any hemoptysis. Fortunately, she has not had any fever chills or sweats. She denies any nausea or vomiting. She states it feels as if her COPD is acting up. She also denies any substernal chest discomfort. She does state occasionally she gets some pain when she coughs.[] Review of Systems Review of Systems Constitutional: Denies fever or chills [] Eyes: Denies change in visual acuity, redness, or eye pain [] HENT: Denies nasal congestion or sore throat [] Respiratory: Per history of present illness[] Cardiovascular: No additional information not addressed in HPI [] GI: Denies abdominal pain, nausea, vomiting, bloody stools or diarrhea [] : Denies dysuria or hematuria [] Musculoskeletal: Denies back pain or joint pain [] Integument: Denies rash or skin lesions [] Neurologic: Denies headache, focal weakness or sensory changes [] Endocrine: Denies polyuria or polydipsia [] All other systems were reviewed and found to be within normal limits, except as documented in this note. Current Medications Current Medications Current Medications Medications (Trade) Dose Ordered [facility] Start Time Stop Time Status Last Admin Dose Admin Albuterol/ Ipratropium (Duoneb) 6 ml 1X ONCE 10/03/18 09:30 10/03/18 09:35 DC 10/03/18 09:37 6 ML Methylprednisolone Sodium Succinate (SOLU-Medrol 125MG VIAL) 125 mg 1X ONCE 10/03/18 10:00 10/03/18 10:01 10/03/18 09:37 125 MG Allergies Allergies Allergies Coded Allergies Type Severity Reaction Last Updated Verified No Known Drug Allergies 09/06/18 No Physical Exam Physical Exam Constitutional: Well developed, well nourished, no acute distress, non-toxic appearance. [] HENT: Normocephalic, atraumatic, bilateral external ears normal, oropharynx moist, no oral exudates, nose normal. [] Eyes: PERRLA, EOMI, conjunctiva normal, no discharge. [] Neck: Normal range of motion, no tenderness, supple, no stridor. [] Cardiovascular:Heart rate regular rhythm, no murmur [] Lungs & Thorax: Scattered wheezes throughout both lungs[] Abdomen: Bowel sounds normal, soft, no tenderness, no masses, no pulsatile masses. [] Skin: Warm, dry, no erythema, no rash. [] Back: No tenderness, no CVA tenderness. [] Extremities: No tenderness, no cyanosis, no clubbing, ROM intact, no edema. [] Neurologic: Alert and oriented X 3, normal motor function, normal sensory function, no focal deficits noted. [] Psychologic: Affect normal, judgement normal, mood normal. [] Current Patient Data Vital Signs Vital Signs Date Time Temp Pulse Resp B/P (MAP) Pulse Ox O2 Delivery O2 Flow Rate FiO2 10/03/18 09:50 91 Nasal Cannula 3.0 10/03/18 09:08 110 22 Lab Results Laboratory Tests Test 10/03/18 09:14 White Blood Count 8.2 x10^3/uL (4.0-11.0) Red Blood Count 4.12 x10^6/uL (3.50-5.40) Hemoglobin 10.8 g/dL (12.0-15.5) L Hematocrit 33.9 % (36.0-47.0) L Mean Corpuscular Volume 82 fL (79-100) Mean Corpuscular Hemoglobin 26 pg (25-35) Mean Corpuscular Hemoglobin Concent 32 g/dL (31-37) Red Cell Distribution Width 16.5 % (11.5-14.5) H Platelet Count 342 x10^3/uL (140-400) Neutrophils (%) (Auto) 78 % (31-73) H Lymphocytes (%) (Auto) 13 % (24-48) L Monocytes (%) (Auto) 6 % (0-9) Eosinophils (%) (Auto) 3 % (0-3) Basophils (%) (Auto) 1 % (0-3) Neutrophils # (Auto) 6.4 x10^3uL (1.8-7.7) Lymphocytes # (Auto) 1.0 x10^3/uL (1.0-4.8) Monocytes # (Auto) 0.5 x10^3/uL (0.0-1.1) Eosinophils # (Auto) 0.2 x10^3/uL (0.0-0.7) Basophils # (Auto) 0.0 x10^3/uL (0.0-0.2) Troponin I Quantitative 0.036 ng/mL (0-0.055) EKG EKG EKG: Sinus tachycardia rate of [address] depression[] Radiology/Procedures Radiology/Procedures [] Impressions: PROCEDURE: CHEST PA & LATERAL Chest, 2 views, 10/03/2018: HISTORY: Productive cough Comparison is made to a study from 09/06/2018. There is evidence of previous coronary artery surgery. The heart size and pulmonary vascularity are at the upper limits of normal. There are prominent epicardial fat pads. No pulmonary consolidation is seen. No significant pleural fluid is evident. Mild spurring is present in the spine. IMPRESSION: 1. Borderline vascular congestion. 2. No acute infiltrates. Course & Med Decision Making Course & Med Decision Making Pertinent Labs and Imaging studies reviewed. (See chart for details) [ED course: Evaluation reveals a 68-year-old female with history of COPD who is wheezing and hypoxic. On HER-2 liters of oxygen she was in the mid to upper 80s. She did have [id number] DuoNeb nebs as well as 125 of [facility] emergency department which did help alleviate her symptoms to some degree. However I think it's in the patient's best interest to be treated in the hospital fairly aggressively over the next 24 hours.] Dragon Disclaimer Dragon Disclaimer This electronic medical record was generated, in whole or in part, using a voice recognition dictation system. Departure Departure: Impression: Primary Impression: COPD exacerbation Disposition: ADMITTED INPATIENT Admitting Physician: Rajesh Acevedo Condition: GUARDED Referrals: RAJESH ACEVEDO MD (PCP) LAKESHIA ADAME DO Oct 03, 2018 09:54
[2018-10-03 09:56] LABS: INFLUENZA A PATIENT NEGATIVE (NEGATIVE); INFLUENZA B PATIENT NEGATIVE (NEGATIVE)
[2018-10-03] MEDS ORDERED: ACETAMINOPHEN 325 MG TABLET PO PRN (10:00)
[2018-10-03] MEDS ORDERED: methylPREDNISolone SOD SUCC PF 125 MG/2 ML VIAL. IV ONE (10:00)
[2018-10-03] MEDS ORDERED: ONDANSETRON PF 4 MG/2 ML VIAL. IV PRN (10:00)
[2018-10-03] MEDS ORDERED: FUROSEMIDE 40 MG/4 ML VIAL IVP ONE (10:45)
[2018-10-03] MEDS ORDERED: ASPIRIN 81 MG TAB.CHEW PO ONE (10:45)
[2018-10-03] MEDS: IPRATRPIUM/ALBUTEROL 0.5/2.5MG 3 ML NEBU. NEB SCH ×3 (12:00→20:29)
[2018-10-03 13:18] VITALS: BP 101/46
[2018-10-03] MEDS: busPIRone 10 MG TABLET. PO SCH ×2 (14:13→20:59)
[2018-10-03] MEDS: methylPREDNISolone SOD SUCC PF 40 MG/ML VIAL. IV SCH ×2 (14:15→21:53)
--- NOTE | 2018-10-03 15:05 | HP ---
ADMIT DATE: 10/03/2018 HISTORY OF PRESENT ILLNESS: The patient is a 68-year-old female patient who was discharged from this hospital recently specifically on 09/09/2018 after admission for chronic obstructive pulmonary disease exacerbation and acute on chronic diastolic congestive heart failure. She was discharged home with home health with physical and occupational therapy and nursing. She was seen yesterday by the home health nurse and she was noted to be short of breath and they recommended that she should come to the hospital, but apparently she refused to come yesterday and apparently her shortness of breath has worsened. She has had cough with yellowish sputum, severe orthopnea, and according to her, she was unable to sleep last night and therefore she came to the Emergency Room where she was extensively evaluated. She was found to be in sinus tachycardia with some lateral ST depression. Her chest x-ray showed borderline vascular congestion, no acute infiltrate and the patient was admitted with chronic obstructive pulmonary disease and probably acute on chronic diastolic congestive heart failure as well as acute hypoxic respiratory failure. Her influenza A and B were negative. She was actually treated with albuterol and Atrovent, IV steroids, methylprednisolone, and was admitted to continue all these medications. 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 She has also had dysphagia and has chronic diastolic congestive heart failure and aortic regurgitation. PAST SURGICAL HISTORY: Significant for right eye cataract extraction, coronary artery bypass graft surgery, right carotid endarterectomy, and cholecystectomy. ALLERGIES: She has no known drug allergies. MEDICATIONS: She is currently on the following medication, fenofibrate 145 mg daily, pravastatin 40 mg at bedtime, metoprolol tartrate 25 mg twice a day, aspirin 325 mg once a day, gabapentin 300 mg at bedtime, buspirone 10 mg 3 times a day and she is also on NovoLog 10 units before meals. She is also on Symbicort 1 puff twice a day and Lantus insulin 50 units twice a day. FAMILY HISTORY: She has one brother and 5 sisters, all older and all of them have diabetes and coronary artery disease. Her father at age of 52 because of myocardial infarction. Mother at the age of 61 because of myocardial infarction. SOCIAL HISTORY: She is , lives alone. She has 3 daughters and one son. She is an ex-smoker, quit 20 years ago. She used to smoke a pack a day for 30-40 years. She does not drink alcohol or use recreational drugs. 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 REVIEW OF SYSTEMS: The patient denied any blurring of vision, glaucoma or macular degeneration. She has cataract extraction of the right eye. Denied any earache, tinnitus or sensorineural deafness. Denied any nosebleeds, stuffy nose or postnasal drip. Denied any sore throat, sore tongue, toothache, hoarseness of voice or difficulty swallowing. Denied any nausea, vomiting, diarrhea or constipation. Denied any hematemesis, melena or hematochezia. Denied any dysuria, frequency or hematuria. Denied any chest pain, but did complain of shortness of breath, orthopnea, and paroxysmal nocturnal dyspnea. Did complain of cough with yellow sputum. Denied any chills, rigors or fever. PHYSICAL EXAMINATION: GENERAL: On arrival to the Emergency Room, the patient was clearly tachypneic, orthopneic. VITAL SIGNS: Her heart rate was 110, blood pressure 114/52, temperature was 98, respiratory rate was 24, and oxygen saturation was 91% on 3 liters of oxygen by nasal cannula. HEAD, EYES, EARS, NOSE, AND THROAT: Showed normocephalic, atraumatic. NECK: Supple. HEART: Showed normal first and second heart sounds. No gallop, rub, r murmur. CHEST: Shows central trachea, equally reduced expansion, reduced air entry, vesicular breath sounds with bilateral basal crepitation. I could not appreciate any rhonchi. ABDOMEN: Distended, soft, nontender. No guarding or rigidity. No organomegaly. All hernial orifices intact. Bowel sounds normal. However, when she arrived to the Emergency Room, she has diffuse wheezing throughout both lungs. NEUROLOGIC: She was awake, alert, responding appropriately. All cranial nerves intact. EXTREMITIES: She moves extremities without difficulty. LABORATORY DATA: On arrival to the Emergency Room showed that her white cell count was 8200, hemoglobin 11, hematocrit 33, MCV 82, and platelet count of 342,000. Her chemistry showed a serum sodium 142, potassium 4.1, chloride 102, bicarbonate 34, anion gap of 6, BUN 11, creatinine 1.1, estimated GFR was 49 mL per minute. Her glucose was 224, calcium was 8.7. Total bilirubin, AST, ALT, alkaline phosphatase were normal. Her troponin was slightly elevated at 0.036. Her beta natriuretic peptide was 1435. Total protein was 7.2, albumin was 2.9. Her influenza A and B were negative. Her chest x-ray showed that there is evidence of previous coronary artery surgery. The heart size and pulmonary vascularity are at the upper limit of normal. There are prominent epicardial fat pad. No pulmonary consolidation is seen. No significant pleural fluid is evident. Mild spurring is present in the spine and the impression is the patient has borderline vascular congestion, no acute infiltrate. ASSESSMENT AND PLAN: In summary, this is a 68-year-old female patient who was admitted with chronic obstructive pulmonary disease exacerbation. She probably has also acute on chronic diastolic congestive heart failure. Her troponin is elevated at 0.36. My plan is obviously to resume all her medications. Continue with Solu-Medrol. I will add antibiotic as she has greenish sputum. My plan is send sputum for culture and add antibiotic, resume all her medications and follow her closely. We will do 2 more sets of cardiac enzymes. We will consult the glazing superintendent as I feel that heart failure is probably a major component of her chronic obstructive pulmonary disease exacerbation. CONSUELO ACEVEDO MD DR: TONG/charles JOB#: [id number] / [id number]
[2018-10-03] MEDS: INSULIN LISPRO 300 UNITS/3 ML INSULN.PEN. SQ SCH (17:34)
[2018-10-03 19:26] VITALS: BP 116/50
[2018-10-03] MEDS ORDERED: ASPIRIN 325 MG TABLET PO SCH (21:00)
[2018-10-03] MEDS ORDERED: PRAVASTATIN 20 MG TABLET. PO SCH (21:00)
[2018-10-03] MEDS ORDERED: GABAPENTIN 300 MG CAPSULE. PO SCH (21:00)
[2018-10-03] MEDS: METOPROLOL TART IMMED RELEASE 25 MG TABLET PO SCH (21:00)
[2018-10-03] MEDS: INSULIN GLARGINE 300 UNITS/3 ML INSULN.PEN. SQ SCH (21:02)
--- NOTE | 2018-10-03 22:43 | PDOC ---
PROVIDER NOTE PROVIDER NOTE PROVIDER NOTE CARDIOLOGY CONSULTATION NOTE Reason for consultation dyspnea History of present illness Mrs. Godwin is a pleasant 68-year-old woman who was been admitted to the hospital in the setting of dyspnea and cough. She apparently has been in an ER or hospital facility approximate 6 times over the last 6 months with exertional dyspnea and cough and wheezing. She does have a known history of COPD from prior history of smoking. She previously lived in [place] but has been moving slowly to [place] over the last few weeks to stay with her kids. She denies any prior angina. No syncope or palpitations. She does have some lower ext edema. Denies any claudication. No prior CVA Past medical history: 1. COPD 2. Hypertension 3. Dyslipidemia 4. Peripheral arterial disease status post stenting of the lower extremities 5. Prior history of CABG status post three-vessel bypass. Social history: Previous smoker. Currently denies any specific alcohol, illicit drug use. Family history noncontributory Review of systems negative for 10 out of 14 systems reviewed unless otherwise mentioned above in history of present illness Allergies no known drug allergies Current cardiac medications: Fnofibrate, metoprolol and aspirin. On examination she is morbidly obese. Vital signs are stable Bilateral wheezing and rhonchi are noted Normal heart tones. 1+ pitting edema of the lower extremities Neurologic no focal deficits Obese protuberant abdomen without any swelling. No significant Muscuskeletal trauma Normal affect. Diagnostic studies Troponin mildly elevated:PEAK 0.[address] with mild lateral ischemia IMPRESSION: 1. Elevated troponin in the setting of a prior history of bypass plus acute COPD exacerbation 2. Known history of diastolic heart failure Recommendations: 1. I had a long discussion with the patient regarding further evaluation and treatment. Having is imperative that she needs to have her lungs optimized as she's been admitted to hospitals or ERs multiple times with dyspnea. After optimization of her lung disease we will likely plan for cardiac catheterization to rule out any occult disease versus more conservative route with a stress test. Patient and family will discuss and let us know to proceed. For now continue aspirin therapy. Obtain echocardiogram. Late entry for 10/03/2018 EMMA PATEL MD Oct 03, 2018 22:43
[2018-10-03 23:25] VITALS: BP 112/45
[2018-10-04] MEDS: IPRATRPIUM/ALBUTEROL 0.5/2.5MG 3 ML NEBU. NEB SCH ×2 (04:45→09:12)
[2018-10-04 05:00] VITALS: BP 118/47
[2018-10-04] MEDS: methylPREDNISolone SOD SUCC PF 40 MG/ML VIAL. IV SCH (06:01)
[2018-10-04] MEDS: ALBUTEROL SULFATE 2.5 MG/3 ML NEBU. NEB SCH ×2 (08:00→09:13)
[2018-10-04] MEDS ORDERED: BUDESONIDE 0.5 MG/2 ML NEBU NEB SCH (08:00)
[2018-10-04] MEDS: INSULIN LISPRO 300 UNITS/3 ML INSULN.PEN. SQ SCH (08:04)
[2018-10-04] MEDS: METOPROLOL TART IMMED RELEASE 25 MG TABLET PO SCH (08:04)
[2018-10-04] MEDS: busPIRone 10 MG TABLET. PO SCH (08:04)
[2018-10-04] MEDS: INSULIN GLARGINE 300 UNITS/3 ML INSULN.PEN. SQ SCH (08:07)
[2018-10-04] MEDS ORDERED: INSU100V37 SQ (08:15)
[2018-10-04] MEDS ORDERED: FLUT1DIS IH (08:16)
[2018-10-04] MEDS ORDERED: BUDE10.22 IH (08:16)
[2018-10-04 08:22] VITALS: BP 111/50
[2018-10-04] MEDS ORDERED: FENOFIBRATE NANOCRYSTALLIZED 145 MG TABLET PO SCH (09:00)
[2018-10-04] MEDS ORDERED: NON FORMULARY ITEM (Budesonide/Formoterol Fumarate (Symbicort 80-4.5 Mcg Inhaler) 2 PUFF) IH SCH (09:00)
[2018-10-04] MEDS ORDERED: NON FORMULARY ITEM (Fluticasone/Salmeterol (Advair 100-50 Diskus) 1 PUFF) IH SCH (09:00)
--- NOTE | 2018-10-04 09:31 | PDOC ---
PROGRESS NOTES Assessment MPRESSION: 1. Elevated troponin in the setting of a prior history of bypass plus acute COPD exacerbation - maintaining SaO2 on nasal cannula oxygen 2. history of diastolic heart failure - no obvious fluid overload at this time. 3. hypertension - controlled on current therapy 4. hyperlipidemia - check lipids at [facility] transfer to [facility] for pulmonary consult and plan possible cath after. Subjective anxious this am, no increase in dyspnea, no chest pain this am. ready for transfer and denies questions. Objective Vital Signs Date Time Temp Pulse Resp B/P (MAP) Pulse Ox O2 Delivery O2 Flow Rate FiO2 10/04/18 09:14 94 Nasal Cannula 2.0 10/04/18 08:22 84 18 111/50 (70) 10/04/18 05:00 97.7 Intake and Output 10/04/18 07:00 Intake Total 1150 ml Balance 1150 ml Intake Oral 1150 ml # Voids 8 Physical Exam gen: A/Ox3, NAD CV: RRR no gallops, clicks or rubs Lungs: decreased throughout abd: +bowel sounds ext: +1 edema, unchanged Review of Relevant I have reviewed the following items socrates (where applicable) has been applied. Labs Laboratory Tests Test 10/03/18 09:14 10/03/18 09:28 10/03/18 12:53 10/03/18 15:40 White Blood Count 8.2 x10^3/uL (4.0-11.0) Red Blood Count 4.12 x10^6/uL (3.50-5.40) Hemoglobin 10.8 g/dL (12.0-15.5) Hematocrit 33.9 % (36.0-47.0) Mean Corpuscular Volume 82 fL (79-100) Mean Corpuscular Hemoglobin 26 pg (25-35) Mean Corpuscular Hemoglobin Concent 32 g/dL (31-37) Red Cell Distribution Width 16.5 % (11.5-14.5) Platelet Count 342 x10^3/uL (140-400) Neutrophils (%) (Auto) 78 % (31-73) Lymphocytes (%) (Auto) 13 % (24-48) Monocytes (%) (Auto) 6 % (0-9) Eosinophils (%) (Auto) 3 % (0-3) Basophils (%) (Auto) 1 % (0-3) Neutrophils # (Auto) 6.4 x10^3uL (1.8-7.7) Lymphocytes # (Auto) 1.0 x10^3/uL (1.0-4.8) Monocytes # (Auto) 0.5 x10^3/uL (0.0-1.1) Eosinophils # (Auto) 0.2 x10^3/uL (0.0-0.7) Basophils # (Auto) 0.0 x10^3/uL (0.0-0.2) Sodium Level 142 mmol/L (136-145) Potassium Level 4.1 mmol/L (3.5-5.1) Chloride Level 102 mmol/L (98-107) Carbon Dioxide Level 34 mmol/L (21-32) Anion Gap 6 (6-14) Blood Urea Nitrogen 11 mg/dL (7-20) Creatinine 1.1 mg/dL (0.6-1.0) Estimated GFR (Cockcroft-Gault) 49.7 BUN/Creatinine Ratio 10 (6-20) Glucose Level 224 mg/dL (70-99) Calcium Level 8.7 mg/dL (8.5-10.1) Total Bilirubin 0.6 mg/dL (0.2-1.0) Aspartate Amino Transf (AST/SGOT) 17 U/L (15-37) Alanine Aminotransferase (ALT/SGPT) 17 U/L (14-59) Alkaline Phosphatase 82 U/L (46-116) Troponin I Quantitative 0.036 ng/mL (0-0.055) 0.078 ng/mL (0-0.055) 0.090 ng/mL (0-0.055) BW-Wal-Q-Type Natriuretic Peptide 1435 pg/mL (0-124) Total Protein 7.2 g/dL (6.4-8.2) Albumin 2.9 g/dL (3.4-5.0) Albumin/Globulin Ratio 0.7 (1.0-1.7) Influenza Type A (Rapid) Negative (NEGATIVE) Influenza Type B (Rapid) Negative (NEGATIVE) Test 10/03/18 16:24 10/03/18 20:09 10/04/18 07:34 Glucose (Fingerstick) 360 mg/dL (70-99) 409 mg/dL (70-99) 320 mg/dL (70-99) Medications Current Medications Albuterol/ Ipratropium (Duoneb) 6 ml 1X ONCE NEB Last administered on 09:37; Start 10/03/18 at 09:30; Stop 10/03/18 at 09:35; Status DC Methylprednisolone Sodium Succinate (SOLU-Medrol 125MG VIAL) 125 mg 1X ONCE IV Last administered on 10/03/18 09:37; Start 10/03/18 at 10:00; Stop 10/03/18 at 10:01; Status DC Ondansetron HCl (Zofran) 4 mg PRN Q4HRS PRN IV NAUSEA/VOMITING; Start 10/03/18 at 10:00; Stop 10/04/18 at 09:59 Acetaminophen (Tylenol) 650 mg PRN Q4HRS PRN PO FEVER; Start 10/03/18 at 10:00 ; Stop 10/04/18 at 09:59 Albuterol/ Ipratropium (Duoneb) 3 ml RTQID NEB Last administered on 10/04/18 09:12; Start 10/03/18 at 12:00; Stop 10/04/18 at 11:59 Methylprednisolone Sodium Succinate (SOLU-Medrol 40MG VIAL) 40 mg Q8HRS IV Last administered on 10/04/18 06:01; Start 10/03/18 at 14:00 Furosemide (Lasix) 40 mg 1X ONCE IVP Last administered on 10/03/18 10:24; Start 10/03/18 at 10:45; Stop 10/03/18 at 10:47; Status DC Aspirin (Children'S Aspirin) 324 mg 1X ONCE PO Last administered on 10/03/18 10:23; Start 10/03/18 at 10:45; Stop 10/03/18 at 10:47; Status DC Aspirin (Mohinder Aspirin) 325 mg QHS PO Last administered on 10/03/18 20:59; Start 10/03/18 at 21:00 Gabapentin (Neurontin) 300 mg QHS PO Last administered on 10/03/18 21:00; Start 10/03/18 at 21:00 Metoprolol Tartrate (Lopressor) 25 mg BID PO Last administered on 10/04/18at 08: 04; Start 10/03/18 at 21:00 Buspirone HCl (Buspar) 10 mg TID PO Last administered on 10/04/18at 08:04; Start 10/03/18 at 14:00 Fenofibrate (Tricor) 145 mg DAILY PO Last administered on 10/04/18at 08:04; Start 10/04/18 at 09:00 Insulin Human Lispro (HumaLOG) 10 units TIDAC SQ Last administered on at 08:04; Start 10/03/18 at 16:30 Pravastatin Sodium (Pravachol) 40 mg QHS PO Last administered on 10/03/18at 21: 00; Start 10/03/18 at 21:00 Insulin Glargine (Lantus) 50 units BID SQ Last administered on 10/04/18at 08:07 ; Start 10/03/18 at 21:00; Stop 10/04/18 at 08:34; Status DC Levofloxacin/ Dextrose 100 ml @ 100 mls/hr Q24H IV Last administered on at 14:15; Start 10/03/18 at 14:00 Non-Formulary Medication (Budesonide/ Formoterol Fumarate (Symbicort 80-4.5 Mcg Inhaler)) 2 puff BID IH ; Start 10/04/18 at 09:00; Stop 10/04/18 at 09:00; Status DC Non-Formulary Medication (Fluticasone/ Salmeterol (Advair 100-50 Diskus)) 1 puff BID IH ; Start 10/04/18 at 09:00; Stop 10/04/18 at 09:00; Status DC Insulin Glargine (Lantus) 70 units BIDWMEALS SQ ; Start 10/04/18 at 17:00 Budesonide (Pulmicort) 0.5 mg RTBID NEB Last administered on 10/04/18at 09:12; Start 10/04/18 at 08:00 Albuterol Sulfate (Ventolin) 2.5 mg RTQID NEB ; Start 10/04/18 at 08:00 Active Scripts Active Reported Symbicort 80-4.5 Mcg Inhaler (Budesonide/Formoterol Fumarate) 10.2 Gm Hfa.aer.ad 2 Puff IH BID Advair 100-50 Diskus (Fluticasone/Salmeterol) 1 Each Disk.w.dev 1 Puff IH BID Tresiba (Insulin Degludec) 100 Unit/1 Ml Vial 70 Unit SQ BIDWMEALS Gabapentin (Gabapentin) 300 Mg Capsule 300 Mg PO QHS Fenofibrate (Fenofibrate Nanocrystallized) 145 Mg Tablet 145 Mg PO DAILY Buspirone Hcl 10 Mg Tablet 10 Mg PO TID Aspirin 325 Mg Tablet 325 Mg PO QHS Novolog Flexpen (Insulin Aspart) 100 Unit/1 Ml Insuln.pen 10 Unit SQ TIDAC Pravastatin Sodium 40 Mg Tablet 40 Mg PO QHS Metoprolol Tartrate 25 Mg Tablet 25 Mg PO BID Vitals/I & O Vital Sign - Last 24 Hours 10/03/18 10/03/18 10/03/18 10/03/18 09:45 09:48 09:50 10:16 Pulse 106 110 Resp 24 24 B/P (MAP) 114/52 (72) 109/50 (69) Pulse Ox 89 92 91 90 O2 Delivery Nasal Cannula Nasal Cannula Nasal Cannula Nasal Cannula O2 Flow Rate 3.0 3.0 3.0 3.5 10/03/18 10/03/18 10/03/18 10/03/18 10:45 11:15 11:45 12:15 Pulse 109 109 108 111 Resp 22 22 22 22 B/P (MAP) 100/54 (69) 110/53 (72) 100/54 (69) 117/55 (75) Pulse Ox 89 90 90 90 O2 Delivery Nasal Cannula Nasal Cannula Nasal Cannula Nasal Cannula O2 Flow Rate 3.0 3.0 3.0 3.0 10/03/18 10/03/18 10/03/18 10/03/18 12:45 13:18 13:34 16:24 Temp 98.5 Pulse 111 109 Resp 22 24 B/P (MAP) 95/51 (66) 101/46 (64) Pulse Ox 90 92 96 O2 Delivery Nasal Cannula Nasal Cannula Nasal Cannula Nasal Cannula O2 Flow Rate 3.0 3.0 3.0 3.0 10/03/18 10/03/18 10/03/18 10/03/18 19:26 19:30 20:30 21:00 Temp 97.2 Pulse 96 96 Resp 16 B/P (MAP) 116/50 (72) 109/55 Pulse Ox 94 94 O2 Delivery Nasal Cannula Nasal Cannula Nasal Cannula O2 Flow Rate 4.0 3.5 4.0 10/03/18 10/04/18 10/04/18 10/04/18 23:25 04:47 05:00 08:04 Temp 97.6 97.7 Pulse 77 84 84 Resp 14 14 B/P (MAP) 112/45 (67) 118/47 (70) 118/76 Pulse Ox 97 94 95 O2 Delivery Nasal Cannula Nasal Cannula Nasal Cannula O2 Flow Rate 4.0 4.0 4.0 10/04/18 10/04/18 10/04/18 08:22 08:22 09:14 Pulse 84 Resp 18 B/P (MAP) 111/50 (70) Pulse Ox 93 94 O2 Delivery Nasal Cannula Nasal Cannula Nasal Cannula O2 Flow Rate 2.5 2.5 2.0 Intake and Output 10/03/18 10/03/18 10/04/18 15:00 23:00 07:00 Intake Total 240 ml 910 ml Balance 240 ml 910 ml HUNG GUARDADO APRN Oct 04, 2018 09:31
--- NOTE | 2018-10-04 12:42 | EKG ---
[address] [address] Test Date: 2018-10-03 Test Time: 09:41:11 Pat Name: ROMARIO CASAS Department: Room: ICU01 1 Gender: F [employer] Trapper: : 1950 Requested By: LAKESHIA ADAME Order Number: [id number] Reading MD: Keenan Means MD Measurements Intervals [place] Rate: 106 P: 67 IN: 158 QRS: 34 QRSD: 94 T: -175 QT: 340 QTc: 453 Interpretive Statements SINUS TACHYCARDIA MILD LEFT VENTRICULAR STRAIN IN LATERAL SEGMENTS Electronically Signed On 10-04-2018 17:28:43 CDT by Keenan Means MD
[2018-10-04] MEDS ORDERED: INSULIN GLARGINE 300 UNITS/3 ML INSULN.PEN. SQ SCH (17:00)
--- NOTE | 2018-10-04 17:02 | DS ---
DATE OF DISCHARGE: 10/04/2018 HOSPITAL COURSE: The patient is a 68-year-old female patient who was admitted on 10/03/2018 with increasing shortness of breath, orthopnea, paroxysmal nocturnal dyspnea. She has cough with yellowish sputum. She was unable to sleep the night before and therefore she came to the Emergency Room where she was extensively investigated. She was found to be in sinus tachycardia with some lateral ST depression. Her chest x-ray showed borderline vascular congestion. No acute infiltrate and the patient was admitted chronic obstructive pulmonary disease and probably acute on chronic diastolic congestive heart failure as well as acute hypoxic respiratory failure, influenza A and B were negative. She was actually treated with albuterol, Atrovent, IV steroids, was admitted to continue to all other medication. Her cardiac enzymes were elevated and rising and therefore, she was seen by the flight purser, who recommended transferring the patient to to be evaluated by the tnt line supervisor and also to consider cardiac catheterization. PHYSICAL EXAMINATION: GENERAL: When I saw her today, she looked well and was clearly in no apparent respiratory distress, pale, but no jaundice, cyanosis, or thyromegaly. No jugular venous distention. No limb edema. VITAL SIGNS: Her heart rate was 84, blood pressure was 111/50, temperature was 97.7, respiratory rate was 18 and oxygen saturation was 93% on 2.5 liters of oxygen. HEAD, EYES, EARS, NOSE AND THROAT: Showed normocephalic, atraumatic. NECK: Supple. HEART: Showed normal first and second heart sounds with no gallop, rub or murmur. CHEST: Clear to auscultation. No crepitation or rhonchi. ABDOMEN: Distended, soft, nontender. No guarding or rigidity. No organomegaly. All hernial orifices intact. Bowel sounds normal. NEUROLOGIC: She was awake, alert, responding appropriately. All cranial nerves intact. EXTREMITIES: She moves extremities without difficulty. LABORATORY DATA: Showed that she has 3 sets of cardiac enzymes that has rising. Her chest x-ray showed borderline vascular congestion, no acute infiltrate. DISCHARGE MEDICATIONS: The patient was discharged to to continue on levofloxacin 500 mg IV daily. Continue with Solu-Medrol 40 mg 3 times a day. Continue with DuoNeb 4 times a day. Continue with aspirin 325 mg once a day, fenofibrate 145 mg once a day, buspirone 10 mg 3 times a day, gabapentin 300 mg at bedtime. She also should continue on her both NovoLog and Tresiba insulin, metoprolol 25 mg twice a day and Pravastatin 40 mg at bedtime. FINAL DISCHARGE DIAGNOSES: 1. Non-ST segment elevation myocardial infarction. 2. Acute on chronic diastolic congestive heart failure. 3. Acute hypoxic respiratory failure. 4. Chronic obstructive pulmonary disease. 5. Hyperlipidemia. 6. Hypertension. 7. Type 2 diabetes. CONSUELO ACEVEDO MD DR: TONG/charles JOB#: [id number] / [id number]
== END 2018-10-04 09:45 | disposition short-term general hospital (02) | DRG 280 ==
LOC: ER 09:00 → ICU 10:00
PROVIDERS: ADMIT Internal Medicine; ATTEND Internal Medicine
DX: I21.4 Non-ST elevation (NSTEMI) myocardial infarction (principal); I50.33 Acute on chronic diastolic (congestive) heart failure; J96.01 Acute respiratory failure with hypoxia; J44.1 Chronic obstructive pulmonary disease with (acute) exacerbation; E11.51 Type 2 diabetes mellitus with diabetic peripheral angiopathy without gangrene; E66.01 Morbid (severe) obesity due to excess calories; E78.5 Hyperlipidemia, unspecified; I11.0 Hypertensive heart disease with heart failure; I25.10 Atherosclerotic heart disease of native coronary artery without angina pectoris; I35.1 Nonrheumatic aortic (valve) insufficiency; Z82.49 Family history of ischemic heart disease and other diseases of the circulatory system; Z87.891 Personal history of nicotine dependence; Z83.3 Family history of diabetes mellitus; Z95.1 Presence of aortocoronary bypass graft; Z95.820 Peripheral vascular angioplasty status with implants and grafts; Z99.81 Dependence on supplemental oxygen; Z68.36 Body mass index [BMI] 36.0-36.9, adult
CPT/HCPCS: 36415; 71046; 80053; 82947; 83880; 84484; 85025; 87804; 93005; 94640; 96374; 96375; J1815; J1940; J1956; J2920; J2930; J7620; J7626; 99285-25

== ENCOUNTER 2018-11-07 14:45 | Emergency (ER) | payer MEDICARE, OTHER ==
[~2018-11-07] VITALS: Ht 157.5 cm; Wt 91.3 kg
[~2018-11-07 14:45] MED LIST changes: +BUDE10.22 IH; +FLUT1DIS IH; +INSU100V37 SQ
[2018-11-07] MEDS ORDERED: FUROSEMIDE 40 MG/4 ML VIAL ONE (14:57)
[2018-11-07] MEDS ORDERED: IPRATRPIUM/ALBUTEROL 0.5/2.5MG 3 ML NEBU. NEB ONE (15:00)
[2018-11-07 15:15] LABS: BASO # 0.1 x10^3/uL (0.0-0.2); BASO % 0 % (0-3); EOS # 0.2 x10^3/uL (0.0-0.7); EOS % 1 % (0-3); HEMATOCRIT 34.8 % (36.0-47.0); HEMOGLOBIN 11.3 g/dL (12.0-15.5); LYMPH # 3.9 x10^3/uL (1.0-4.8); LYMPH % 20 % (24-48); MEAN CORPUSCULAR HEMOGLOBIN 27 pg (25-35); MEAN CORPUSCULAR HGB CONC 32 g/dL (31-37); MEAN CORPUSCULAR VOLUME 82 fL (79-100); MONO # 1.4 x10^3/uL (0.0-1.1); MONO % 7 % (0-9); NEUT % 71 % (31-73); PLATELET COUNT 405 x10^3/uL (140-400); RED BLOOD COUNT 4.25 x10^6/uL (3.50-5.40); WHITE BLOOD COUNT 19.6 x10^3/uL (4.0-11.0)
--- NOTE | 2018-11-07 15:26 | RAD ---
EXAM: Chest, single view. HISTORY: Intubation. COMPARISON: 10/03/2018 FINDINGS: A frontal view of the chest is obtained. There is an endotracheal tube within the mid trachea. There is diffuse interstitial infiltrate. There is cardiomegaly and evidence of prior CABG. No pneumothorax is seen. The costophrenic angles are excluded from the [id number]. IMPRESSION: 1. Diffuse interstitial infiltrate. 2. Cardiomegaly. 3. Endotracheal tube in expected position. Electronically signed by: Monae Dawn MD (11/07/2018 3:23 PM) [place] [id number]
--- NOTE | 2018-11-07 15:28 | PHYS DOC ---
Past History Past Medical History: COPD, Heart Disease, Other Past Surgical History: Colectomy, Other Alcohol Use: None Drug Use: None Adult General Chief Complaint Chief Complaint: SHORTNESS OF BREATH HPI HPI Patient is a 68-year-old female with shortness of breath over the past several days, became much worse today. Patient was brought in by EMS, decreased mental status while she was getting a DuoNeb and an albuterol nebulizer treatment prior to their transport. History is limited from the patient due to her altered mental status.[] Review of Systems Review of Systems Unable to obtain review of systems due to altered mental status All other systems were reviewed and found to be within normal limits, except as documented in this note. Current Medications Current Medications Current Medications Medications (Trade) Dose Ordered Sig/Smitha Start Time Stop Time Status Last Admin Dose Admin Albuterol/ Ipratropium (Duoneb) 3 ml 1X ONCE 11/07/18 15:00 11/07/18 15:02 DC Furosemide (Lasix) 40 mg STK-MED ONCE 11/07/18 14:57 11/07/18 14:58 DC Allergies Allergies Allergies Coded Allergies Type Severity Reaction Last Updated Verified No Known Drug Allergies 09/06/18 No Physical Exam Physical Exam Constitutional: Well developed, well nourished, in respiratory distress, increased work of breathing, minimally responsive to painful stimuli. [] HENT: Normocephalic, atraumatic, bilateral external ears normal, oropharynx moist, no oral exudates, nose normal. [] Eyes: Examined. [] Neck: Normal range of motion, no tenderness, supple, no stridor. [] Cardiovascular:Heart rate regular rhythm, no murmur [] Lungs & Thorax: Bilateral breath sounds with decreased breath sounds, rales and wheezes present with bag ventilations[] Abdomen: Bowel sounds normal, soft, no tenderness, no masses, no pulsatile masses. [] Skin: Warm, dry, no erythema, no rash. [] Back: No tenderness, no CVA tenderness. [] Extremities: No tenderness, no cyanosis, no clubbing, ROM intact, no edema. [] Neurologic: Somnolent, GCS of 3, [] Psychologic: Unable to assess[] EKG EKG EKG shows a sinus rhythm at 75 bpm, no axis, QTC of 483 ms, no ST elevations, ST depressions present laterally. Interpreted by me at 1524[] Radiology/Procedures Radiology/Procedures [] Course & Med Decision Making Course & Med Decision Making Pertinent Labs and Imaging studies reviewed. (See chart for details) ED course: Patient arrived, was transferred from the EMS cot to the ER bed, and placed on BiPAP which did not significantly change her low oxygen saturation. Due to not protecting her airway, decreased mental status and hypoxia it was deemed necessary to intubate the patient. See intubation note. Patient's blood pressure did decrease after intubation. She was given ketamine for any reactive airway/asthma/COPD issues along with sedation. Consultation was made with Dr. Clinton at [facility] who graciously accepted the patient. Critical care time 45 minutes to include direct patient care, discussion with EMS and family, interpretation of labs and imaging, and direct bedside care outside of procedures[] Dragon Disclaimer Dragon Disclaimer This electronic medical record was generated, in whole or in part, using a voice recognition dictation system. Departure Departure: Referrals: CONSUELO ACEVEDO MD (PCP) Intubation Procedure Intubation Procedure Intub Indication: Respiratory distress, altered mental status[] Consent: Not obtained due to emergent situation[] Medications Used: Succinylcholine and etomidate[] Procedure: The patient was placed in the sniffing position. Cricoid pressure [] . Intubation was performed Mac 3 and a 7.5 endotracheal tube. The tube was secured utilizing commercial tube securing device]. Initial confirmation of placement included volume the tube, color change capnometer, and CO2 detector. A chest x-ray to verify correct placement of the tube with the tip of the endotracheal tube at the clavicles. The patient tolerated the procedure well]. Complications: On] MANISH OCASIO DO Nov 07, 2018 15:28
[2018-11-07 15:31] LABS: ALBUMIN 3.4 g/dL (3.4-5.0); ALBUMIN/GLOBULIN RATIO 0.7 (1.0-1.7); CALCIUM 8.7 mg/dL (8.5-10.1); CREATININE 1.3 mg/dL (0.6-1.0); POTASSIUM 4.3 mmol/L (3.5-5.1); TOTAL BILIRUBIN 0.6 mg/dL (0.2-1.0); TOTAL PROTEIN 8.4 g/dL (6.4-8.2)
[2018-11-07] MEDS ORDERED: PROPOFOL 100 ML IV PRN (16:00)
[2018-11-07] MEDS ORDERED: SUCCINYLCHOLINE 200 MG/10 ML VIAL. ONE (16:00)
[2018-11-07] MEDS ORDERED: VECURONIUM 10 MG VIAL. IV ONE (16:00)
[2018-11-07] MEDS ORDERED: AZITHROMYCIN 500 MG in IV NORMAL SALINE 250ML 250 ML IV ONE (16:00)
[2018-11-07] MEDS ORDERED: ETOMIDATE 40 MG/20 ML VIAL. IV ONE (16:00)
[2018-11-07] MEDS ORDERED: KETAMINE HCL 500 MG/10 ML VIAL. ONE (16:00)
[2018-11-07] MEDS ORDERED: IV NORMAL SALINE 1,000ML 1,000 ML IV ONE (16:00)
[2018-11-07] MEDS ORDERED: IV NORMAL SALINE 50ML 50 ML ONE (16:11)
[2018-11-07] MEDS ORDERED: AZITHROMYCIN 500 MG VIAL. IV ONE (16:11)
[2018-11-07] MEDS ORDERED: IV NORMAL SALINE 250ML 250 ML ONE (16:11)
[2018-11-07] MEDS ORDERED: cefTRIAXone SODIUM 1 GM VIAL ONE (16:11)
[2018-11-07 16:28] LABS: % ATYL 1 % (0-0); % BANDS 1 % (0-9); % LYMPHS 19 % (24-48); % MONOS 3 % (0-10); % SEGS 76 % (35-66)
[2018-11-07 16:30] LABS: ANISOCYTOSIS SLIGHT; HYPOCHROMIA SLIGHT; PLT ESTIMATE ADEQUATE (ADEQUATE); POLYCHROMASIA SLIGHT
[2018-11-07 16:44] VITALS: BP 103/44
[2018-11-07 17:37] LABS: BILIRUBIN,URINE NEG (NEG); CLARITY,URINE CLOUDY; COLOR,URINE YELLOW; GLUCOSE,URINE NEG (NEG)
[2018-11-07 17:38] LABS: BACTERIA,URINE 0 /HPF (0-FEW); HYALINE CASTS, URINE OCC /HPF; NITRITE,URINE NEG (NEG); RBC,URINE OCC /HPF (0-2); SQUAMOUS EPITHELIAL CELL,UR OCC /LPF; UROBILINOGEN,URINE 1 mg/dL (0.2 mg/dL); WBC,URINE OCC /HPF (0-4)
[2018-11-07 18:12] LABS: BGAS PH 7.25 (7.35-7.45)
[2018-11-07 18:16] LABS: BGAS PH 7.2 (7.35-7.45)
--- NOTE | 2018-11-07 18:28 | EKG ---
[address] [address] Test Date: 2018-11-07 Test Time: 15:23:30 Pat Name: ROMARIO CASAS Department: Room: Gender: F [employer] Specialist: MARY ELLEN : 1950 Requested By: MANISH OCASIO Order Number: [id number] Reading MD: John Hagen Measurements Intervals [place] Rate: 75 P: 55 AK: 178 QRS: 64 QRSD: 98 T: 119 QT: 430 QTc: 483 Interpretive Statements SINUS RHYTHM MOBITZ TYPE I SECOND DEGREE AVB ST & T ABNORMALITY, CONSIDER LATERAL ISCHEMIA OR LEFT VENTRICULAR STRAIN ABNORMAL ECG Electronically Signed On 11-12-2018 13:27:52 CDT by John Hagen
== END 2018-11-07 17:40 | disposition short-term general hospital (02) ==
LOC: ER 14:45
DX: R06.02 Shortness of breath (principal); R06.03 Acute respiratory distress; R41.82 Altered mental status, unspecified; J44.9 Chronic obstructive pulmonary disease, unspecified
CPT/HCPCS: 31500; 36415; 36600; 71045; 80053; 81001; 82803; 83880; 84484; 85007; 85025; 93005; 94640; 94660; 96374; 96375; 96376; 99285; J0330; J0456; J0696; J2704; J3010; J3490; J7050; 94002; 99291-25; J7030